=== PATIENT | female | born 1940 | race Caucasian/White ===

== ENCOUNTER 2018-03-11 15:42 | Outpatient (CLI) | payer MEDICARE | END 2018-03-11 15:43 | disposition home or self-care (01) | LOC: BICMAMMO 15:42 | PROVIDERS: ATTEND Family Medicine | DX: Z12.31 Encounter for screening mammogram for malignant neoplasm of breast (principal) | CPT/HCPCS: 77063; 77067 ==

== ENCOUNTER 2019-03-17 15:45 | Outpatient (CLI) | payer MEDICARE ==
--- NOTE | 2019-03-17 16:30 | MMO ---
Bilateral MAMMO Bilat Screen [facility]. CLINICAL HISTORY: Patient is 78 years old and is seen for screening. The patient has no family history of breast cancer. The patient has no personal history of cancer. The patient has a history of right Excisional Biopsy in 2009 - benign. VIEWS: The views performed were: bilateral craniocaudal with tomosynthesis and bilateral mediolateral oblique with tomosynthesis. FILMS COMPARED: The present examination has been compared to prior imaging studies performed at [facility] on 03/06/2015, 03/07/2016, 03/10/2017 and 03/11/2018. This study has been interpreted with the assistance of computer-aided detection. MAMMOGRAM FINDINGS: The breasts are heterogeneously dense, which could obscure a lesion on mammography. There is an asymmetry seen in the CC view only seen in the inner region of the left breast. In the right breast, there are no suspicious masses, calcifications or areas of architectural distortion. IMPRESSION: ASYMMETRY IN THE LEFT BREAST REQUIRES ADDITIONAL EVALUATION. RECOMMEND DIAGNOSTIC MAMMOGRAM. ULTRASOUND MAY ALSO PROVE USEFUL AT RECALL. THE RESULTS OF THIS EXAM WERE SENT TO THE PATIENT. ACR BI-RADS Category 0 - Incomplete: Need additional imaging evaluation. [facility] will notify the patient of the need for additional imaging services. MAMMOGRAPHY NOTE: 1. A negative mammogram report should not delay a biopsy if a dominant of clinically suspicious mass is present. 2. Approximately 10% to 15% of breast cancers are not detected by mammography. 3. Adenosis and dense breasts may obscure an underlying neoplasm. Reported by: FRANCES CHAUHAN MD Electonically Signed: [id number]
== END 2019-03-17 15:46 | disposition home or self-care (01) ==
LOC: BICMAMMO 15:45
PROVIDERS: ATTEND Family Medicine
DX: Z12.31 Encounter for screening mammogram for malignant neoplasm of breast (principal); N64.89 Other specified disorders of breast; Z91.89 Other specified personal risk factors, not elsewhere classified
CPT/HCPCS: 77063; 77067

== ENCOUNTER 2019-03-18 14:41 | Outpatient (CLI) | payer MEDICARE ==
--- NOTE | 2019-03-18 15:21 | MMO ---
Left Breast MAMMO Unilat Diag [facility]. CLINICAL HISTORY: Patient is 78 years old and is seen for diagnostic exam. The patient has no family history of breast cancer. The patient has no personal history of cancer. The patient has a history of right Excisional Biopsy in 2009 - benign. VIEWS: The views performed were: left craniocaudal spot compression with tomosynthesis and left mediolateral with tomosynthesis. FILMS COMPARED: The present examination has been compared to prior imaging studies performed at [facility] on 03/07/2016, 03/10/2017, 03/11/2018 and 03/17/2019. This study has been interpreted with the assistance of computer-aided detection. MAMMOGRAM FINDINGS: There are scattered fibroglandular densities. The asymmetry seen at screening mammography does not persist at additional imaging, compatible with superimposed tissue. There are no suspicious masses, suspicious calcifications, or new areas of architectural distortion. IMPRESSION: THERE IS NO MAMMOGRAPHIC EVIDENCE OF MALIGNANCY. A ROUTINE FOLLOW-UP MAMMOGRAM IN 1 YEAR IS RECOMMENDED. THE RESULTS OF THIS EXAM WERE SENT TO THE PATIENT. ACR BI-RADS Category 2 - Benign finding MAMMOGRAPHY NOTE: 1. A negative mammogram report should not delay a biopsy if a dominant of clinically suspicious mass is present. 2. Approximately 10% to 15% of breast cancers are not detected by mammography. 3. Adenosis and dense breasts may obscure an underlying neoplasm. Reported by: FRANCES CHAUHAN MD Electonically Signed: [id number]
== END 2019-03-18 14:42 | disposition home or self-care (01) ==
LOC: BICMAMMO 14:41
PROVIDERS: ATTEND Family Medicine
DX: R92.2 Inconclusive mammogram (principal)
CPT/HCPCS: 77065; G0279

== ENCOUNTER 2020-03-23 15:37 | Outpatient (CLI) | payer MEDICARE ==
--- NOTE | 2020-03-23 16:14 | MMO ---
Bilateral MAMMO Bilat Screen [facility]. CLINICAL HISTORY: Patient is 79 years old and is seen for screening. The patient has no family history of breast cancer. The patient has no personal history of cancer. The patient has a history of right Excisional Biopsy in 2009 - benign. VIEWS: The views performed were: bilateral craniocaudal with tomosynthesis and bilateral mediolateral oblique with tomosynthesis. FILMS COMPARED: The present examination has been compared to prior imaging studies performed at [facility] on 03/10/2017, 03/11/2018, 03/17/2019 and 03/18/2019. This study has been interpreted with the assistance of computer-aided detection. MAMMOGRAM FINDINGS: There are scattered fibroglandular densities. There are no suspicious masses, suspicious calcifications, or new areas of architectural distortion. IMPRESSION: THERE IS NO MAMMOGRAPHIC EVIDENCE OF MALIGNANCY. A ROUTINE FOLLOW-UP MAMMOGRAM IN 1 YEAR IS RECOMMENDED. THE RESULTS OF THIS EXAM WERE SENT TO THE PATIENT. ACR BI-RADS Category 1 - Negative MAMMOGRAPHY NOTE: 1. A negative mammogram report should not delay a biopsy if a dominant of clinically suspicious mass is present. 2. Approximately 10% to 15% of breast cancers are not detected by mammography. 3. Adenosis and dense breasts may obscure an underlying neoplasm. Reported by: FRANCES CHAUHAN MD Electonically Signed: [id number]
== END 2020-03-23 15:38 | disposition home or self-care (01) ==
LOC: BICMAMMO 15:37
PROVIDERS: ATTEND Family Medicine
DX: Z12.31 Encounter for screening mammogram for malignant neoplasm of breast (principal)
CPT/HCPCS: 77063; 77067

== ENCOUNTER 2021-04-03 15:27 | Outpatient (CLI) | payer MEDICARE | END 2021-04-03 15:28 | disposition home or self-care (01) | LOC: BICMAMMO 15:27 | PROVIDERS: ATTEND Family Medicine | DX: Z12.31 Encounter for screening mammogram for malignant neoplasm of breast (principal); Z91.89 Other specified personal risk factors, not elsewhere classified | CPT/HCPCS: 77063; 77067 ==

== ENCOUNTER 2021-04-23 08:49 | Inpatient (IN) | payer MEDICARE ==
[2021-04-23 11:56] VITALS: BMI 29.7
[2021-04-23] MEDS ORDERED: Dextrose 5% in Water 1,000 ML IV PRN (13:18)
[2021-04-23] MEDS ORDERED: HumaLOG 300 UNITS/3 ML VIAL SC PRN (13:18)
[2021-04-23] MEDS ORDERED: Acetaminophen 325 MG TAB PO PRN (13:18)
[2021-04-23] MEDS ORDERED: Dextrose 50% Abboject 50 ML SYRINGE SLOW IVP PRN (13:18)
[2021-04-23] MEDS ORDERED: Ondansetron ODT 4 MG TAB PO PRN (13:18)
[2021-04-23] MEDS ORDERED: hydrALAZINE 20 MG/ML VIAL SLOW IVP PRN (18:13)
[2021-04-23] MEDS: HumaLOG 300 UNITS/3 ML VIAL SC PRN (18:39)
[2021-04-23] MEDS ORDERED: Rosuvastatin 5 MG TAB PO SCH (21:00)
[2021-04-23] MEDS: Rosuvastatin 20 MG TAB PO SCH (21:50)
[2021-04-23] MEDS: Fluticasone Propionate Nasal Spray 16 gm Bottle NASAL PRN (22:51)
[2021-04-24 06:20] LABS: #Eosinphils 0.1 thou/uL (0.0-0.7); #Lymphocytes 1.4 thou/uL (1.20-3.40); #Monocytes 0.4 thou/uL (0.11-0.59); #Neutrophils 3.3 thou/uL (1.40-6.50); %Basophils 0.3 % (0.0-1.0); %Eosinophils 1.9 % (0.0-10.0); %Lymphocytes 27.2 % (21.0-51.0); %Monocytes 7.3 % (0.0-10.0); %Neutrophils 63.3 % (42.0-75.0); Hemoglobin 11.9 g/dL (12.0-16.0); Mean Corpuscular HGB CONC 32.7 g/dL (32.0-36.0); Mean Corpuscular Hemoglobin 32.3 pg (27.0-31.0); Mean Corpuscular Volume 98.6 fL (78.0-98.0); Mean Platelet Volume 6.9 fL (7.4-10.4); Platelet Count 172 thou/uL (130-400); RBC Distribution Width 11.7 % (11.5-14.5); Red Blood Cell (RBC) Count 3.69 mill/uL (4.20-5.40); White Blood Cell (WBC) Count 5.2 thou/uL (4.8-10.8)
[2021-04-24 06:44] LABS: Anion Gap 11 mmol/L (10-20); BUN (Urea Nitrogen) 9 mg/dL (9.8-20.1); Calc. Creatinine Clearance 93 mL/min (70-130); Calcium 8.6 mg/dL (7.8-10.44); Carbon Dioxide 26 mmol/L (23-31); Cardiac Risk 2.3 (Less than 4.5); Chloride 104 mmol/L (98-107); Cholesterol 144 mg/dl (< 200 Desired); Glucose 125 mg/dL (83-110); HDL Cholesterol 62 mg/dL (>60 Neg Risk); LDL Cholesterol, Calculated 66 mg/dL; Potassium 3.6 mmol/L (3.5-5.1); Sodium 137 mmol/L (136-145); Triglycerides 82 mg/dL (Less than 150)
[2021-04-24] MEDS ORDERED: FLU VACC QS2021-22(65YR UP)/PF 240 MCG/0.7 ML SYRINGE IM ONE (09:00)
[2021-04-24] MEDS: Clopidogrel Bisulfate 75 MG TAB PO SCH (09:20)
[2021-04-24] MEDS: Aspirin 81 mg Enteric Coated Tablet PO SCH (09:20)
[2021-04-24] MEDS ORDERED: Loratadine 10 MG TAB PO PRN (15:19)
[2021-04-24] MEDS: Rosuvastatin 20 MG TAB PO SCH (20:37)
[2021-04-24] MEDS: Carvedilol 25 MG TAB PO SCH (20:37)
[2021-04-24] MEDS: Fluticasone Propionate Nasal Spray 16 gm Bottle NASAL PRN (20:38)
[2021-04-25] MEDS: Carvedilol 25 MG TAB PO SCH ×2 (09:33→20:27)
[2021-04-25] MEDS: Losartan 25 MG TAB PO SCH (09:33)
[2021-04-25] MEDS: Aspirin 81 mg Enteric Coated Tablet PO SCH (09:34)
[2021-04-25] MEDS: Clopidogrel Bisulfate 75 MG TAB PO SCH (09:34)
[2021-04-25] MEDS: Furosemide 20 MG TAB PO SCH (09:34)
[2021-04-25] MEDS: metFORMIN 500 MG TAB PO SCH (09:34)
[2021-04-25] MEDS: Multivit, Therapeutic 1 TAB PO SCH (09:35)
[2021-04-25] MEDS: Calcium Carbonate 600 MG + Vit D TAB PO SCH (09:35)
[2021-04-25] MEDS: HumaLOG 300 UNITS/3 ML VIAL SC PRN (12:56)
[2021-04-25] MEDS: Rosuvastatin 20 MG TAB PO SCH (20:27)
[2021-04-26] MEDS: Losartan 25 MG TAB PO SCH (08:23)
[2021-04-26] MEDS: Furosemide 20 MG TAB PO SCH (08:23)
[2021-04-26] MEDS: Aspirin 81 mg Enteric Coated Tablet PO SCH (08:23)
[2021-04-26] MEDS: Clopidogrel Bisulfate 75 MG TAB PO SCH (08:24)
[2021-04-26] MEDS: Calcium Carbonate 600 MG + Vit D TAB PO SCH (08:24)
[2021-04-26] MEDS: Multivit, Therapeutic 1 TAB PO SCH (08:24)
[2021-04-26] MEDS: Carvedilol 25 MG TAB PO SCH ×2 (08:24→20:45)
[2021-04-26] MEDS: metFORMIN 500 MG TAB PO SCH (08:24)
[2021-04-26] MEDS ORDERED: Saccharomyces boulardii 250 MG CAP PO SCH (11:30)
[2021-04-26] MEDS: Fluticasone Propionate Nasal Spray 16 gm Bottle NASAL PRN (12:09)
[2021-04-26] MEDS ORDERED: Loperamide HCl 2 MG CAP PO PRN (12:09)
[2021-04-26] MEDS ORDERED: Calcium Carbonate 500 MG ChewTAB PO PRN (12:09)
[2021-04-26] MEDS ORDERED: Hydrocerin (Eucerin) Cream 120 gm Jar TOP PRN (12:09)
[2021-04-26] MEDS ORDERED: Bisacodyl 5 MG TAB PO PRN (12:09)
[2021-04-26] MEDS ORDERED: Zolpidem Tartrate 5 MG TAB PO PRN (12:09)
[2021-04-26] MEDS ORDERED: HYDROcodone/Acetaminophen 5/325 mg Tablet PO PRN (12:09)
[2021-04-26] MEDS ORDERED: GUAIFENESIN SF SOLN 200 MG/10 ML UDCUP PO PRN (12:09)
[2021-04-26] MEDS ORDERED: Cepastat Lozenges 1 LOZ PO PRN (12:09)
[2021-04-26] MEDS ORDERED: Artificial Tear Sol 15 ML BOT EA EYE PRN (12:09)
[2021-04-26] MEDS ORDERED: Senokot S 8.6-50 MG TAB PO PRN (12:09)
[2021-04-26] MEDS: Rosuvastatin 20 MG TAB PO SCH (20:43)
[2021-04-27] MEDS: Losartan 25 MG TAB PO SCH (09:01)
[2021-04-27] MEDS: Furosemide 20 MG TAB PO SCH (09:02)
[2021-04-27] MEDS: metFORMIN 500 MG TAB PO SCH (09:02)
[2021-04-27] MEDS: Calcium Carbonate 600 MG + Vit D TAB PO SCH (09:02)
[2021-04-27] MEDS: Aspirin 81 mg Enteric Coated Tablet PO SCH (09:02)
[2021-04-27] MEDS: Carvedilol 25 MG TAB PO SCH ×2 (09:02→20:51)
[2021-04-27] MEDS: Clopidogrel Bisulfate 75 MG TAB PO SCH (09:02)
[2021-04-27] MEDS: Saccharomyces boulardii 250 MG CAP PO SCH (09:02)
[2021-04-27] MEDS: Multivit, Therapeutic 1 TAB PO SCH (09:02)
[2021-04-27] MEDS: HumaLOG 300 UNITS/3 ML VIAL SC PRN (17:06)
[2021-04-27] MEDS: Rosuvastatin 20 MG TAB PO SCH (20:51)
[2021-04-28] MEDS: Losartan 25 MG TAB PO SCH (08:33)
[2021-04-28] MEDS: Multivit, Therapeutic 1 TAB PO SCH (08:34)
[2021-04-28] MEDS: Saccharomyces boulardii 250 MG CAP PO SCH (08:34)
[2021-04-28] MEDS: Calcium Carbonate 600 MG + Vit D TAB PO SCH (08:34)
[2021-04-28] MEDS: Clopidogrel Bisulfate 75 MG TAB PO SCH (08:34)
[2021-04-28] MEDS: metFORMIN 500 MG TAB PO SCH (08:34)
[2021-04-28] MEDS: Aspirin 81 mg Enteric Coated Tablet PO SCH (08:34)
[2021-04-28] MEDS: Furosemide 20 MG TAB PO SCH (08:35)
[2021-04-28] MEDS: Carvedilol 25 MG TAB PO SCH (09:33)
[2021-04-28 15:53] VITALS: BP 127/57; TEMP 98.3
[2021-05-01] MEDS ORDERED: ALENDRONATE SODIUM PO SCH (09:00)
== END 2021-04-28 19:20 | disposition swing bed (61) | DRG 65 ==
LOC: NEURO 08:49
PROVIDERS: ADMIT Internal Medicine; ATTEND Internal Medicine
DX: I63.81 Other cerebral infarction due to occlusion or stenosis of small artery (principal); G81.94 Hemiplegia, unspecified affecting left nondominant side; Z20.822 Contact with and (suspected) exposure to COVID-19; Z23 Encounter for immunization; R29.702 NIHSS score 2; E78.5 Hyperlipidemia, unspecified; I50.9 Heart failure, unspecified; E11.9 Type 2 diabetes mellitus without complications; I11.0 Hypertensive heart disease with heart failure; J32.4 Chronic pansinusitis; R20.2 Paresthesia of skin; I08.1 Rheumatic disorders of both mitral and tricuspid valves; Z88.2 Allergy status to sulfonamides; Z91.048 Other nonmedicinal substance allergy status; Z79.899 Other long term (current) drug therapy; Z79.82 Long term (current) use of aspirin; Z79.84 Long term (current) use of oral hypoglycemic drugs; Z79.02 Long term (current) use of antithrombotics/antiplatelets
CPT/HCPCS: 36415; 36416; 70551; 80048; 80061; 83036; 84443; 85025; 90471; 90662; 90732; 93306; 93880; G0008; G0009; J1815

== ENCOUNTER 2022-05-06 12:52 | Outpatient (CLI) | payer MEDICARE | END 2022-05-06 12:53 | disposition home or self-care (01) | LOC: BICMAMMO 12:52 | PROVIDERS: ATTEND Family Medicine | DX: Z12.31 Encounter for screening mammogram for malignant neoplasm of breast (principal); Z91.89 Other specified personal risk factors, not elsewhere classified | CPT/HCPCS: 77063; 77067 ==

== ENCOUNTER 2022-05-27 13:49 | Outpatient (CLI) | payer MEDICARE | END 2022-05-27 13:50 | disposition home or self-care (01) | LOC: BICMAMMO 13:49 | PROVIDERS: ATTEND Family Medicine | DX: R92.2 Inconclusive mammogram (principal) | CPT/HCPCS: 77065; G0279 ==

== ENCOUNTER 2022-10-01 10:36 | Observation (INO) | payer MEDICARE ==
[2022-10-01 11:04] LABS: #Eosinphils 0.1 thou/uL (0.0-0.7); #Lymphocytes 1.9 thou/uL (1.20-3.40); #Monocytes 0.5 thou/uL (0.11-0.59); %Basophils 0.2 % (0.0-1.0); %Eosinophils 1.6 % (0.0-10.0); %Lymphocytes 35.1 % (21.0-51.0); %Monocytes 8.7 % (0.0-10.0); %Neutrophils 54.3 % (42.0-75.0); Hemoglobin 14.2 g/dL (12.0-16.0); Mean Corpuscular HGB CONC 33.6 g/dL (32.0-36.0); Mean Corpuscular Hemoglobin 33.5 pg (27.0-31.0); Mean Corpuscular Volume 99.6 fl (78.0-98.0); Platelet Count 211 10x3/uL (130-400); RBC Distribution Width 11.8 % (11.5-14.5); Red Blood Cell (RBC) Count 4.24 mill/uL (4.20-5.40); White Blood Cell (WBC) Count 5.5 10x3/uL (4.8-10.8)
[2022-10-01 11:22] LABS: ALT (SGPT) 18 U/L (8-55); AST (SGOT) 15 U/L (5-34); Albumin 4.6 g/dL (3.4-4.8); Alkaline Phosphatase 60 U/L (40-110); Anion Gap 15 mmol/L (10-20); BUN (Urea Nitrogen) 18 mg/dL (9.8-20.1); Bilirubin, Total 0.6 mg/dL (0.2-1.2); Calc. Creatinine Clearance 0 mL/min (70-130); Calcium 9.4 mg/dL (7.8-10.44); Carbon Dioxide 27 mmol/L (23-31); Chloride 99 mmol/L (98-107); Estimated GFR 86; Globulin 2.9 g/dL (2.4-3.5); Glucose 107 mg/dL (83-110); Potassium 4.2 mmol/L (3.5-5.1); Protein, Total 7.5 g/dL (5.8-8.1); Sodium 137 mmol/L (136-145)
[2022-10-01] MEDS ORDERED: Aspirin Chewable 81 MG TAB ONE (11:56)
[2022-10-01] MEDS ORDERED: Dextrose 5% in Water 1,000 ML IV PRN (12:46)
[2022-10-01] MEDS ORDERED: HumaLOG 300 UNITS/3 ML VIAL SC PRN ×2 (12:46)
[2022-10-01] MEDS ORDERED: Dextrose 50% Abboject 50 ML SYRINGE SLOW IVP PRN (12:46)
[2022-10-01] MEDS ORDERED: Acetaminophen 325 MG TAB PO PRN (12:46)
[2022-10-01] MEDS ORDERED: hydrALAZINE 20 MG/ML VIAL SLOW IVP PRN (12:46)
[2022-10-01 13:44] VITALS: BMI 29.1
[2022-10-01] MEDS ORDERED: Atorvastatin Calcium 40 MG TAB PO SCH (21:00)
[2022-10-02 06:33] LABS: #Eosinphils 0.1 thou/uL (0.0-0.7); #Lymphocytes 1.6 thou/uL (1.20-3.40); #Monocytes 0.4 thou/uL (0.11-0.59); %Basophils 0.6 % (0.0-1.0); %Eosinophils 1.3 % (0.0-10.0); %Lymphocytes 31.2 % (21.0-51.0); %Monocytes 8.4 % (0.0-10.0); %Neutrophils 58.5 % (42.0-75.0); Hemoglobin 13.1 g/dL (12.0-16.0); Mean Corpuscular HGB CONC 33.2 g/dL (32.0-36.0); Mean Corpuscular Hemoglobin 32.5 pg (27.0-31.0); Mean Corpuscular Volume 97.9 fl (78.0-98.0); Mean Platelet Volume 6.9 fL (7.4-10.4); Platelet Count 186 10x3/uL (130-400); RBC Distribution Width 11.8 % (11.5-14.5); Red Blood Cell (RBC) Count 4.04 mill/uL (4.20-5.40); White Blood Cell (WBC) Count 5.1 10x3/uL (4.8-10.8)
[2022-10-02 06:59] LABS: Anion Gap 12 mmol/L (10-20); BUN (Urea Nitrogen) 13 mg/dL (9.8-20.1); Calc. Creatinine Clearance 81 mL/min (70-130); Calcium 8.9 mg/dL (7.8-10.44); Carbon Dioxide 25 mmol/L (23-31); Cardiac Risk 2.3 (Less than 4.5); Chloride 102 mmol/L (98-107); Cholesterol 156 mg/dl (< 200 Desired); Estimated GFR 91; Glucose 127 mg/dL (83-110); HDL Cholesterol 67 mg/dL (>60 Neg Risk); LDL Cholesterol, Calculated 72 mg/dL; Potassium 3.9 mmol/L (3.5-5.1); Sodium 135 mmol/L (136-145); Triglycerides 87 mg/dL (Less than 150)
[2022-10-02] MEDS ORDERED: Fluticasone Propionate Nasal Spray 16 gm Bottle NASAL PRN (07:23)
[2022-10-02] MEDS ORDERED: Clopidogrel Bisulfate 75 MG TAB PO SCH (09:00)
[2022-10-02] MEDS ORDERED: Carvedilol 25 MG TAB PO SCH (09:00)
[2022-10-02] MEDS ORDERED: Furosemide 40 MG TAB PO SCH (09:00)
[2022-10-02] MEDS ORDERED: Aspirin 325 mg Enteric Coated Tablet PO SCH (09:00)
[2022-10-02 11:57] VITALS: TEMP 98
[2022-10-02 15:01] VITALS: BP 154/75
[2022-10-02] MEDS ORDERED: Amlodipine 5 MG TAB PO SCH (21:00)
== END 2022-10-02 16:11 | disposition home or self-care (01) ==
LOC: ERS 10:36 → NEURO 12:41
PROVIDERS: ADMIT Internal Medicine; ATTEND Internal Medicine
DX: G45.9 Transient cerebral ischemic attack, unspecified (principal); E11.9 Type 2 diabetes mellitus without complications; E78.5 Hyperlipidemia, unspecified; I11.0 Hypertensive heart disease with heart failure; I50.9 Heart failure, unspecified; I42.9 Cardiomyopathy, unspecified; Z86.73 Personal history of transient ischemic attack (TIA), and cerebral infarction without residual deficits; Z66 Do not resuscitate; Z79.02 Long term (current) use of antithrombotics/antiplatelets; Z79.82 Long term (current) use of aspirin; Z79.83 Long term (current) use of bisphosphonates; Z79.84 Long term (current) use of oral hypoglycemic drugs; Z79.899 Other long term (current) drug therapy; Z88.2 Allergy status to sulfonamides; Z91.048 Other nonmedicinal substance allergy status
CPT/HCPCS: 36415; 36416; 70450; 70551; 80048; 80053; 80061; 84484; 85025; 93005; 93880; G0378; J1815

== ENCOUNTER 2023-06-05 15:13 | Outpatient (CLI) | payer MEDICARE | END 2023-06-05 15:14 | disposition home or self-care (01) | LOC: BICULT 15:13 | PROVIDERS: ATTEND Family Medicine | DX: N39.0 Urinary tract infection, site not specified (principal) | CPT/HCPCS: 76770 ==